=== PATIENT | male | born 1955 | race Caucasian/White ===

== ENCOUNTER 2017-06-18 13:15 | Emergency (ER) | payer OTHER ==
[~2017-06-18] VITALS: Ht 188 cm; Wt 117.9 kg
[~2017-06-18 13:15] MED LIST: Hydralazine HCl10 MG PO; Hydrochlorothia25 MG PO; K-Dur10 MEQ PO; Mucinex600 MG PO
[2017-06-18 14:36] LABS: BASOPHILS ABSOLUTE AUTO 0.01 K/mm3 (0.00-0.23); BASOPHILS PERCENT AUTO 0 % (0-2); EOSINOPHILS ABSOLUTE AUTO 0.15 K/mm3 (0.00-0.68); EOSINOPHILS PERCENT AUTO 3 % (0-6); Hematocrit 47.1 % (37.0-53.0); Hemoglobin 16.7 g/dL (13.5-17.5); IMMATURE GRAN ABSOLUTE AUTO 0.01 K/mm3 (0.00-0.10); IMMATURE GRAN PERCENT AUTO 0 % (0-1); LYMPHOCYTES ABSOLUTE AUTO 1.71 K/mm3 (0.84-5.20); LYMPHOCYTES PERCENT AUTO 33 % (21-46); MONOCYTES ABSOLUTE AUTO 0.34 K/mm3 (0.16-1.47); MONOCYTES PERCENT AUTO 7 % (4-13); Mean Corpuscular HGB Conc 35.5 g/dL (31.5-36.5); Mean Corpuscular Volume 85 fL (80-100); Mean Platelet Volume 10.1 fL (9.1-12.4); NEUTROPHILS PERCENT AUTO 57 % (41-73); Platelet Count 123 K/mm3 (150-400); RDW Coefficient Variation 13.4 % (11.7-14.2); Red Blood Cell Count 5.56 M/mm3 (4.30-5.90); White Blood Cell Count 5.22 K/mm3 (4.00-11.30)
[2017-06-18 14:47] LABS: International Normalized Ratio 1.1; Prothrombin Time Results 11.5 Sec (9.7-11.5)
[2017-06-18 14:48] LABS: Alanine Aminotransfer (ALT/SGP 68 U/L (12-78); Albumin, Blood 3.7 g/dL (3.4-5.0); Alk Phos 85 U/L (50-136); Anion Gap 7 mmol/L (6-16); Aspartate Aminotrans (AST/SGOT 66 U/L (12-37); Bilirubin, Total 0.7 mg/dL (0.1-1.0); Blood Urea Nitrogen 20 mg/dL (8-24); Bun/Creatinine Ratio 20.8 (12.0-20.0); CO2, Blood 29 mmol/L (21-32); Calcium, Blood 8.7 mg/dL (8.5-10.1); Chloride, Blood 104 mmol/L (98-108); Creatinine, Blood 0.96 mg/dL (0.60-1.20); Globulin, Blood 3.6 g/dL (2.2-4.0); Glomerular Filtration Rate >60 (60-); Glucose, Blood 225 mg/dL (70-99); Potassium, Blood 3.9 mmol/L (3.5-5.5); Sodium, Blood 140 mmol/L (136-145); Total Protein, Blood 7.3 g/dL (6.4-8.2); Troponin I <0.015 ng/mL (0.000-0.040)
[2017-06-18 15:01] LABS: Base Excess Venous 4.4 mmol/L; Bicarbonate Venous 27.1 mmol/L (24.0-30.0); PCO2 Venous 50.6 mmHg (38-42); PO2 Venous 83.4 mmHg (38-42); pH Blood Venous 7.38 (7.34-7.37)
[2017-06-18] MEDS ORDERED: Prinivil10 MG PO (15:31)
[2017-06-18] MEDS ORDERED: HYDCHL25 PO (15:31)
[2017-06-18] MEDS ORDERED: Tylenol325 MG PO (15:31)
[2017-06-18] MEDS ORDERED: ALBU90OI INH (15:33)
[2017-10-15] MEDS ORDERED: METF500 PO (08:08)
[2017-10-15] MEDS ORDERED: ASPI81CH PO (10:40)
[2017-10-15] MEDS ORDERED: AMLO5 PO (10:41)
[2017-10-15] MEDS ORDERED: HYDR1TAB94 PO (10:41)
[2017-10-15] MEDS ORDERED: ACET325 (10:42)
[2017-10-15] MEDS ORDERED: CLOP75 PO (10:42)
[2017-10-18] MEDS ORDERED: Prinivil10 MG PO (19:25)
== END 2017-06-18 16:55 | disposition home or self-care (01) ==
LOC: ER 13:15
PROVIDERS: Emergency Medicine
DX: I10 Essential (primary) hypertension (principal); M25.511 Pain in right shoulder; M25.512 Pain in left shoulder; R73.9 Hyperglycemia, unspecified; I87.9 Disorder of vein, unspecified; Z88.0 Allergy status to penicillin; Z79.899 Other long term (current) drug therapy
CPT/HCPCS: 36415; 71046; 80053; 82803; 83880; 84484; 85025; 85610; 93005; 93010; 99284

== ENCOUNTER 2017-10-07 14:45 | Inpatient (IN) | payer OTHER ==
[~2017-10-07] VITALS: Ht 188 cm; Wt 104.8 kg
[~2017-10-07 14:45] MED LIST changes: +ALBU90OI INH; +HYDCHL25 PO; +Prinivil10 MG PO; +Tylenol325 MG PO
[2017-10-07 15:40] LABS: BASOPHILS ABSOLUTE AUTO 0.03 K/mm3 (0.00-0.23); BASOPHILS PERCENT AUTO 1 % (0-2); EOSINOPHILS ABSOLUTE AUTO 0.16 K/mm3 (0.00-0.68); EOSINOPHILS PERCENT AUTO 3 % (0-6); Hematocrit 46.7 % (37.0-53.0); Hemoglobin 15.9 g/dL (13.5-17.5); IMMATURE GRAN PERCENT AUTO 0 % (0-1); LYMPHOCYTES ABSOLUTE AUTO 1.98 K/mm3 (0.84-5.20); LYMPHOCYTES PERCENT AUTO 30 % (21-46); MONOCYTES ABSOLUTE AUTO 0.47 K/mm3 (0.16-1.47); MONOCYTES PERCENT AUTO 7 % (4-13); Mean Corpuscular HGB 29.9 pg (26.0-34.0); Mean Corpuscular Volume 88 fL (80-100); Mean Platelet Volume 10.1 fL (9.1-12.4); NEUTROPHILS ABSOLUTE AUTO 3.89 K/mm3 (1.96-9.15); NEUTROPHILS PERCENT AUTO 60 % (41-73); Platelet Count 192 K/mm3 (150-400); RDW Coefficient Variation 12.8 % (11.7-14.2); RDW Standard Deviation 41.1 fL (35.1-46.3); Red Blood Cell Count 5.31 M/mm3 (4.30-5.90); White Blood Cell Count 6.53 K/mm3 (4.00-11.30)
[2017-10-07 15:54] LABS: Alanine Aminotransfer (ALT/SGP 60 U/L (12-78); Albumin, Blood 3.8 g/dL (3.4-5.0); Albumin/Globulin Ratio 0.9 (0.8-1.8); Alk Phos 76 U/L (50-136); Anion Gap 5 mmol/L (6-16); Aspartate Aminotrans (AST/SGOT 48 U/L (12-37); Bilirubin, Total 0.7 mg/dL (0.1-1.0); Blood Urea Nitrogen 21 mg/dL (8-24); Bun/Creatinine Ratio 21.5 (12.0-20.0); CO2, Blood 32 mmol/L (21-32); Calcium, Blood 8.6 mg/dL (8.5-10.1); Chloride, Blood 101 mmol/L (98-108); Creatinine, Blood 0.98 mg/dL (0.60-1.20); Globulin, Blood 4.3 g/dL (2.2-4.0); Glomerular Filtration Rate >60 (60-); Glucose, Blood 216 mg/dL (70-99); Potassium, Blood 3.9 mmol/L (3.5-5.5); Sodium, Blood 138 mmol/L (136-145); Total Protein, Blood 8.1 g/dL (6.4-8.2); Troponin I <0.015 ng/mL (0.000-0.040)
[2017-10-08] MEDS ORDERED: LISI20 PO (11:37)
[2017-10-08] MEDS ORDERED: METF500C PO (11:38)
[2017-10-08 18:43] LABS: Source, Urine Clean Catch
[2017-10-08 18:48] LABS: Appearance, Urine Clear (Clear); Bilirubin, Urine Neg (Neg); Blood, Urine Neg (Neg); Color, Urine Yellow (P-Yellow); Glucose Qualitative, Urine Neg (Neg); Ketones, Urine Neg (Neg); Leukocyte Esterase, Urine Neg (Neg); Nitrite, Urine Neg (Neg); Protein, Urine Neg (Neg); Urobilinogen, Urine NORM (Normal)
[2017-10-09] MEDS ORDERED: AMLO5 PO (14:47)
[2017-10-09] MEDS ORDERED: ASPI81CH PO (14:47)
[2017-10-09] MEDS ORDERED: ATOR40TA PO (14:48)
[2017-10-09] MEDS ORDERED: CLOP75 PO (14:48)
== END 2017-10-09 15:20 | disposition home or self-care (01) | DRG 66 ==
LOC: ER 14:45 → MEDS 14:46
PROVIDERS: Emergency Medicine; Internal Medicine
DX: I63.9 Cerebral infarction, unspecified (principal); I10 Essential (primary) hypertension; E11.9 Type 2 diabetes mellitus without complications; M54.9 Dorsalgia, unspecified; Z87.891 Personal history of nicotine dependence
CPT/HCPCS: 36415; 70450; 70549; 70551; 80053; 81003; 82947; 83036; 84484; 85025; 93005; 93010; 93306; 97110; 97116; 97161; 97166; 97530; 97535; 99285; A9577; G8978; G8979; G8987; G8988; J1650

== ENCOUNTER 2017-10-16 08:48 | Day surgery (SDC) | payer OTHER ==
[~2017-10-16] VITALS: Ht 188 cm; Wt 105.2 kg
[~2017-10-16 08:48] MED LIST changes: +ACET325; +AMLO5 PO; +ASPI81CH PO; +ATOR40TA PO; +CLOP75 PO; +HYDR1TAB94 PO; +LISI20 PO; +METF500 PO; +METF500C PO
[2017-10-18] MEDS ORDERED: Prinivil10 MG PO (19:25)
== END 2017-10-16 22:55 | disposition home or self-care (01) ==
LOC: ORSCMMR 08:48 → ORD 10:00 → ORSCMMR 10:00
DX: R10.13 Epigastric pain (principal); R19.7 Diarrhea, unspecified; Z53.9 Procedure and treatment not carried out, unspecified reason
CPT/HCPCS: J7120